=== PATIENT | female | born 1995 | race Caucasian/White ===

== ENCOUNTER 2024-03-31 14:19 | Emergency (ER) | payer MEDICAID, OTHER ==
[~2024-03-31] VITALS: Ht 157.5 cm; Wt 65.1 kg
[2024-03-31 14:40] VITALS: BP 115/73; PULSE 94; RESP 18; TEMP 98.2; O2SAT 99
[2024-03-31] MEDS ORDERED: HYDR-3965 PO (14:47)
[2024-03-31] MEDS ORDERED: SULF1TAB49 PO (14:47)
[2024-03-31] MEDS: CefTRIAXone 1000mg IM Kit (w/lidocaine diluent) IM ONE (15:10)
== END 2024-03-31 15:11 | disposition home or self-care (01) ==
LOC: ER 14:20
DX: L02.416 Cutaneous abscess of left lower limb (principal); L03.116 Cellulitis of left lower limb
CPT/HCPCS: 96372; 99283; J0696